=== PATIENT | female | born 1955 | race African-American/Black ===

== ENCOUNTER 2017-02-25 14:35 | Emergency (ER) | payer BC, OTHER ==
[~2017-02-25] VITALS: Ht 152.4 cm; Wt 102.5 kg
[2017-02-25] MEDS ORDERED: SINGULAIR 10 MG10 M1 PO (15:01)
[2017-02-25] MEDS ORDERED: EPIPEN 2-P0.3 MG/0.3 IM (15:02)
[2017-02-25] MEDS ORDERED: ACCUNEB SO1.25 MG/1 INH (15:02)
[2017-02-25] MEDS ORDERED: SYMBICORT160 MCG/4. INH (15:03)
[2017-02-25] MEDS ORDERED: TRIAMTERENE/HCT1 CA1 PO (15:05)
[2017-02-25] MEDS ORDERED: VITAMIN B-12500 MCG PO (15:06)
[2017-02-25] MEDS ORDERED: CENTRUM SILVER1 EAC4 PO (15:06)
[2017-02-25] MEDS ORDERED: NEXIUM40 MG PO (15:07)
[2017-02-25] MEDS ORDERED: ZOCOR40 MG PO (15:07)
[2017-02-25] MEDS ORDERED: FLONASE 0.05%50 MCG NASAL (15:08)
[2017-02-25] MEDS ORDERED: NIACIN SR 250250 MG PO (15:08)
[2017-02-25] MEDS ORDERED: ASPIR 8181 MG PO (15:08)
[2017-02-25] MEDS ORDERED: CYCLOBENZAPRINE5 MG PO (16:16)
[2017-02-25] MEDS ORDERED: NORCO 5-325 TA1 EACH PO (16:20)
[2017-02-25 16:23] VITALS: BP 130/75
== END 2017-02-25 16:33 | disposition home or self-care (01) ==
LOC: ER 14:35
DX: S16.1XXA Strain of muscle, fascia and tendon at neck level, initial encounter (principal); R51 Headache; K21.9 Gastro-esophageal reflux disease without esophagitis; I10 Essential (primary) hypertension; Z90.710 Acquired absence of both cervix and uterus; E78.5 Hyperlipidemia, unspecified; J45.909 Unspecified asthma, uncomplicated; Z88.5 Allergy status to narcotic agent; Z88.6 Allergy status to analgesic agent; Z88.1 Allergy status to other antibiotic agents; V49.50XA Passenger injured in collision with unspecified motor vehicles in traffic accident, initial encounter; Y93.I9 Activity, other involving external motion; Y92.410 Unspecified street and highway as the place of occurrence of the external cause; Y99.9 Unspecified external cause status

== ENCOUNTER 2018-07-25 15:17 | Emergency (ER) | payer OTHER ==
[~2018-07-25] VITALS: Ht 152.4 cm; Wt 99.3 kg
[~2018-07-25 15:17] MED LIST: ACCUNEB SO1.25 MG/1 INH; ASPIR 8181 MG PO; CENTRUM SILVER1 EAC4 PO; CYCLOBENZAPRINE5 MG PO; EPIPEN 2-P0.3 MG/0.3 IM; FLONASE 0.05%50 MCG NASAL; NEXIUM40 MG PO; NIACIN SR 250250 MG PO; NORCO 5-325 TA1 EACH PO; SINGULAIR 10 MG10 M1 PO; SYMBICORT160 MCG/4. INH; TRIAMTERENE/HCT1 CA1 PO; VITAMIN B-12500 MCG PO; ZOCOR40 MG PO
[2018-07-25 15:38] LABS: URINE BILIRUBIN NEGATIVE (Negative); URINE BLOOD TRACE (Negative); URINE CLARITY CLEAR; URINE COLOR YELLOW; URINE GLUCOSE-RANDOM* NEGATIVE (Negative); URINE KETONES NEGATIVE (Negative); URINE LEUKOCYTES-REFLEX NEGATIVE (Negative); URINE NITRITE-REFLEX NEGATIVE (Negative); URINE PROTEIN (DIPSTICK) NEGATIVE (Negative); URINE SPECIFIC GRAVITY >= 1.030 (1.005-1.035); URINE UROBILINOGEN 0.2 E.U./dl (0.2-1.0)
[2018-07-25 16:01] LABS: ABSOLUTE NEUTROPHILS 3.9 thou/uL (1.4-8.2); BASOPHILS 0.9 % (0.0-2.0); HEMATOCRIT 42.5 % (37.0-47.0); HEMOGLOBIN 14.2 gm/dL (12.0-15.0); LYMPHOCYTES 43.3 % (24.0-44.0); MCH 29.9 pg (26.0-34.0); MCHC 33.4 g/dL (28.0-37.0); MCV 89.5 fL (80.0-100.0); MONOCYTES 10.5 % (1.0-8.0); PLATELET COUNT 361 thou/uL (150-400); POLYS 44.3 % (36.0-66.0); RBC 4.75 mil/uL (4.20-5.00); RDW 14.4 % (10.5-14.5); WBC 8.8 thou/uL (4.0-11.0)
[2018-07-25 16:08] LABS: CALCIUM 9.6 mg/dL (8.5-10.1); CREATININE 1.1 mg/dL (0.6-1.0); POTASSIUM 3.7 mmol/L (3.5-5.1)
[2018-07-25 16:16] LABS: ALBUMIN 3.5 g/dL (3.4-5.0); TOTAL BILIRUBIN 1.3 mg/dL (<0.1-1.0); TOTAL PROTEIN 8.1 g/dL (6.4-8.2)
[2018-07-25] MEDS ORDERED: ARNUITY ELLIP100 MCG INH (16:36)
[2018-07-25] MEDS ORDERED: NORCO 5-325 TA1 EACH PO (16:45)
[2018-07-25 17:10] VITALS: BP 125/78
== END 2018-07-25 17:11 | disposition home or self-care (01) ==
LOC: ER 15:17
PROVIDERS: Nurse Practitioner Family
DX: S46.811A Strain of other muscles, fascia and tendons at shoulder and upper arm level, right arm, initial encounter (principal); I10 Essential (primary) hypertension; E78.5 Hyperlipidemia, unspecified; K21.9 Gastro-esophageal reflux disease without esophagitis; J45.909 Unspecified asthma, uncomplicated; Z90.710 Acquired absence of both cervix and uterus; Z88.1 Allergy status to other antibiotic agents; Z88.5 Allergy status to narcotic agent; Z88.6 Allergy status to analgesic agent; X50.9XXA Other and unspecified overexertion or strenuous movements or postures, initial encounter; Y93.89 Activity, other specified; Y92.89 Other specified places as the place of occurrence of the external cause; Y99.8 Other external cause status